=== PATIENT | male | born 1985 | race Caucasian/White ===

== ENCOUNTER 2018-07-31 05:07 | Emergency (ER) | payer SELFPAY ==
[~2018-07-31] VITALS: Ht 177.8 cm; Wt 70.0 kg
[2018-07-31 11:19] VITALS: BP 95/50
== END 2018-07-31 11:22 | disposition home or self-care (01) ==
LOC: ED 11:16
DX: F10.120 Alcohol abuse with intoxication, uncomplicated (principal)
CPT/HCPCS: 99283

== ENCOUNTER 2020-05-29 08:01 | Emergency (ER) | payer MEDICAID ==
[~2020-05-29] VITALS: Ht 172.7 cm; Wt 105.2 kg
[2020-05-29 08:22] VITALS: BP 117/76
--- NOTE | 2020-05-29 10:01 | NUR ---
PT CAME IN CO OF DIZZINESS AND A DRY COUGH. PT STATES SHE GOT A NEW VAPE PEN THAT HAS BEEN "HITTING HARSH". PT ALSO SAYS SHE FEELS TIRED AND SLUGGISH A LOT LATLEY BUT HAS HYPOTHYROID AND DOESNT TAKE MEDS FOR IT. PT RESTING IN [facility]. AWAITING
== END 2020-05-29 10:36 | disposition home or self-care (01) ==
LOC: MERGE 08:01 → ED 09:00
DX: J02.8 Acute pharyngitis due to other specified organisms (principal); J06.9 Acute upper respiratory infection, unspecified; R09.89 Other specified symptoms and signs involving the circulatory and respiratory systems; B97.89 Other viral agents as the cause of diseases classified elsewhere; R50.9 Fever, unspecified
CPT/HCPCS: 71046; 87081; 87880; 99284

== ENCOUNTER 2020-10-29 20:57 | Emergency (ER) | payer MEDICAID ==
[~2020-10-29] VITALS: Ht 172.7 cm; Wt 110.5 kg
--- NOTE | 2020-10-29 21:31 | NUR ---
PATIENT WALKED BACK FROM TRIAGE WITH CHIEF C/O COVID+. PER PATIENT HE TESTED POSITIVE FOR COVID 2 WEEKS AGO. PATIENT STATES TODAY HE'S BEEN HAVING CHILLS AND SWEATS, COUGH HAS GOTTEN WORSE. ORIGINALLY SYMPTOMS STARTED 3 WEEKS AGO. YONNY KEITH, CALL LIGHT WITHIN REACH.
--- NOTE | 2020-10-29 21:44 | NUR ---
IMAGING AT BEDSIDE.
--- NOTE | 2020-10-29 21:55 | NUR ---
PATIENT PLACED ON [employer]PRESENT[employer]IVE.
--- NOTE | 2020-10-29 22:42 | NUR ---
[employer] AT BEDSIDE.
--- NOTE | 2020-10-29 22:54 | NUR ---
PATIENT SITTING IN [place] ON PHONE, NADN, VSS, CALL LIGHT WITHIN REACH, WILL CONTINUE TO MONITOR.
[2020-10-29 22:58] LABS: BASOPHILS % (AUTO) 1 % (0-1); EOSINOPHILS % (AUTO) 2 % (1-7); LYMPHOCYTES % (AUTO) 32 % (22-44); MEAN CORPUSCULAR HEMOGLOBIN 30.2 pg (27.5-34.5); MEAN CORPUSCULAR HGB CONC 34.9 g/dL (33.2-36.2); MEAN PLATELET VOLUME 7.6 fL (7.4-10.4); MONOCYTES % (AUTO) 9 % (2-9); NEUTROPHILS % (AUTO) 57 % (42-75); PLATELET COUNT 253 x10^3/uL (130-400); RED BLOOD COUNT 5.26 x10^6/uL (4.38-5.82); RED CELL DISTRIBUTION WIDTH 12.3 % (9.4-14.8)
[2020-10-29 23:08] LABS: MD NO
[2020-10-29 23:10] LABS: ALANINE AMINOTRANSFERASE 113 U/L (12-78); ALBUMIN 3.7 g/dL (3.4-5.0); ANION GAP 5 mmol/L (5-15); CALCIUM 9.5 mg/dL (8.5-10.1); CHLORIDE 105 mmol/L (98-107)
[2020-10-29 23:15] LABS: ALKALINE PHOSPHATASE 79 U/L (45-117); BILIRUBIN,TOTAL 0.5 mg/dL (0.2-1.0); CREATININE 0.93 mg/dL (0.7-1.3); TOTAL PROTEIN 6.7 g/dL (6.4-8.2); TROPONIN I < 0.015 ng/mL (0.000-0.045)
[2020-10-29 23:47] VITALS: BP 114/64
--- NOTE | 2020-10-29 23:59 | NUR ---
Patient given discharge instructions and prescriptions and they have confirmed that they understand the instructions, all questions answered. Patient stable and ambulatory with steady gait from ED.
== END 2020-10-30 | disposition home or self-care (01) ==
LOC: ED 22:47
DX: U07.1 COVID-19 (principal); B34.9 Viral infection, unspecified; R94.31 Abnormal electrocardiogram [ECG] [EKG]; R06.02 Shortness of breath; Z87.891 Personal history of nicotine dependence
CPT/HCPCS: 36415; 71045; 80053; 84484; 85025; 93005; 99285